=== PATIENT | male | born 1980 | race Caucasian/White ===

== ENCOUNTER 2017-06-29 15:21 | Emergency (ER) | payer OTHER ==
[2017-06-29] MEDS ORDERED: Zofran 4 MG/2 ML VIAL IV ONE (15:47)
[2017-06-29] MEDS ORDERED: Sodium Chloride 0.9% 1000 ML 1,000 ML IV STA (15:47)
[2017-06-29] MEDS ORDERED: PROTONIX 40 MG IV IV ONE ×2 (15:47→16:05)
[2017-06-29] MEDS ORDERED: GI COCKTAIL 45 ML (Maalox/Lidocaine) PO ONE (15:52)
--- NOTE | 2017-06-29 16:02 | ERPHSYRPT ---
- History of Present Illness Time Seen by Provider: 06/29/17 15:45 Historian: patient Exam Limitations: clinical condition Patient Subjective Stated Complaint: Pt states "two days ago I started to have stomach pain. It is a sharp pain that starts in my lower stomach and then comes up and out in my upper stomach." Triage Nursing Assessment: Pt alert and oriented X 3, skin pwd. Pt ambulates with an upright steady gait, able to speak in clear full sentences. appears in no respiratory distress, sitting calmly on the bed. Physician History: PATIENT COMPLAINS OF INTERMITTENT EPIGASTRIC AND PERIUMBILICAL PAINS FOR 2 DAYS , ASSOCIATED WITH NAUSEA. DENIES EMESIS, DIARRHEA OR FEVER. DENIES RADIATION OF PAIN TO BACK, URINARY SYMPTOMS. Timing/Duration: yesterday Activities at Onset: none Quality: throbbing Abdominal Pain Onset Location: epigastric, periumbilical Pain Radiation: no radiation Severity of Pain-Max: moderate Severity of Pain-Current: moderate Modifying Factors: Improves With: eating Associated Symptoms: nausea Previous symptoms: no prior history Allergies/Adverse Reactions: No Known Drug Allergies Allergy (Unverified 11/17/13 07:45) Hx Tetanus, Diphtheria Vaccination/Date Given: No Hx Influenza Vaccination/Date Given: No Hx Pneumococcal Vaccination/Date Given: No Immunizations Up to Date: Yes - Review of Systems Constitutional: No Fever, No Chills Eyes: No Symptoms Ears, Nose, & Throat: No Symptoms Respiratory: No Symptoms, No Cough, No Dyspnea Cardiac: No Symptoms, No Chest Pain, No Edema, No Syncope Abdominal/Gastrointestinal: Abdominal Pain, Nausea, No Vomiting, No Diarrhea Genitourinary Symptoms: No Symptoms, No Dysuria Musculoskeletal: No Symptoms, No Back Pain, No Neck Pain Skin: No Symptoms, No Rash Neurological: No Dizziness, No Focal Weakness, No Sensory Changes Psychological: No Symptoms Endocrine: No Symptoms All Other Systems: Reviewed and Negative - Past Medical History Pertinent Past Medical History: Yes Neurological History: No Pertinent History ENT History: No Pertinent History Cardiac History: No Pertinent History Respiratory History: No Pertinent History Endocrine Medical History: No Pertinent History Musculoskeletal History: No Pertinent History GI Medical History: Hernia History: No Pertinent History Psycho-Social History: No Pertinent History Male Reproductive Disorders: No Pertinent History - Past Surgical History Past Surgical History: Yes Neuro Surgical History: No Pertinent History Cardiac: No Pertinent History Respiratory: No Pertinent History Gastrointestinal: No Pertinent History Genitourinary: No Pertinent History Musculoskeletal: No Pertinent History Male Surgical History: No Pertinent History Other Surgical History: hernia - Social History Smoking Status: Current every day smoker How long have you smoked: years Exposure to second hand smoke: Yes Drug Use: none Patient Lives Alone: No - Nursing Vital Signs Nursing Vital Signs: Initial Vital Signs Temperature 98.3 F 06/29/17 15:26 Pulse Rate 72 06/29/17 15:26 Respiratory Rate 16 06/29/17 15:26 Blood Pressure 162/98 06/29/17 15:26 O2 Sat by Pulse Oximetry 99 06/29/17 15:26 Pain Scale Pain Intensity 4 - Physical Exam General Appearance: no apparent distress, alert Eye Exam: PERRL/EOMI, eyes nml inspection Ears, Nose, Throat Exam: normal ENT inspection, pharynx normal, moist mucous membranes Neck Exam: normal inspection, non-tender, supple, full range of motion Respiratory Exam: normal breath sounds, lungs clear, No respiratory distress Cardiovascular Exam: regular rate/rhythm, normal heart sounds Gastrointestinal/Abdomen Exam: soft, normal bowel sounds, tenderness ( PERIUMBILICAL. RLQ, LLQ TENDERNESS, NO GUARDING OR REBOUND TENDERNESS.), other (THERE IS NO GUARDING OR REBOUND TENDERNESS), No mass Back Exam: normal inspection, normal range of motion, No CVA tenderness, No vertebral tenderness Extremity Exam: normal inspection, normal range of motion, pelvis stable Neurologic Exam: alert, oriented x 3, cooperative, normal mood/affect, nml cerebellar function, sensation nml, No motor deficits Skin Exam: normal color, warm, dry SpO2 Interpretation: normal SpO2: 99 Oxygen Delivery: Room Air - CT Exams Abdomen/Pelvis CT Interpretation: Discussed w/radiologist (NEGATIVE ABDOMINAL PELVIC CT WITH CONTRAST) Ordered Tests: Active Orders 24 hr Category Date Time Status Clean Catch Urine Specimen STAT Care 06/29/17 15:47 Active IV Insertion STAT Care 06/29/17 15:47 Active ABDOMEN AND PELVIS W CONTRAST [CT] Stat Exams 06/29/17 15:48 Taken AMYLASE Stat Lab 06/29/17 16:00 Completed CBC W DIFF Stat Lab 06/29/17 16:00 Completed CMP Stat Lab 06/29/17 16:00 Completed LIPASE Stat Lab 06/29/17 16:00 Completed UA W/RFX UR CULTURE Stat Lab 06/29/17 16:45 Completed Medication Summary Discontinued Medications Generic Name Dose Route Start Last Admin Trade Name Aliyah PRN Reason Stop Dose Admin Al Hydrox/Mg Hydrox/Simethicone Confirm 06/29/17 16:05 Maalox Es 30 Ml Unit Dose Administered 06/29/17 16:06 Dose 30 ml .ROUTE .STK-MED ONE Hydromorphone HCl 1 mg 06/29/17 16:05 06/29/17 16:26 Hydromorphone 1 Mg/Ml Ampule IV 06/29/17 16:06 1 mg STAT ONE Administration Hydromorphone HCl Confirm 06/29/17 16:25 Hydromorphone 1 Mg/Ml Ampule Administered 06/29/17 16:26 Dose 1 mg .ROUTE .STK-MED ONE Sodium Chloride 1,000 mls @ 500 mls/hr 06/29/17 15:47 06/29/17 16:08 Sodium Chloride 0.9% 1000 Ml IV 06/29/17 17:46 500 mls/hr .Q2H STA Administration Sodium Chloride Confirm 06/29/17 16:05 Sodium Chloride 0.9% 1000 Ml Administered 06/29/17 16:06 Dose 1,000 mls @ ud .ROUTE .STK-MED ONE Lidocaine HCl Confirm 06/29/17 16:05 Xylocaine Hcl Viscous * Administered 06/29/17 16:06 Dose 1 ml .ROUTE .STK-MED ONE Magnesium Hydroxide 45 ml 06/29/17 15:52 06/29/17 16:08 Gi Cocktail 45 Ml (Maalox/Lidocaine) PO 06/29/17 15:53 45 ml STAT ONE Administration Ondansetron HCl 4 mg 06/29/17 15:47 06/29/17 16:08 Zofran 4 Mg/2 Ml Vial IV 06/29/17 15:48 4 mg STAT ONE Administration Ondansetron HCl Confirm 06/29/17 16:05 Zofran 4 Mg/2 Ml Vial Administered 06/29/17 16:06 Dose 4 mg .ROUTE .STK-MED ONE Pantoprazole Sodium 40 mg 06/29/17 15:47 06/29/17 16:08 Protonix 40 Mg Iv IV 06/29/17 15:48 40 mg STAT ONE Administration Pantoprazole Sodium Confirm 06/29/17 16:05 Protonix 40 Mg Iv Administered 06/29/17 16:06 Dose 40 mg IV .K-MED ONE Lab/Rad Data: Laboratory Result Diagrams 06/29/17 16:00 06/29/17 16:00 Laboratory Results 06/29/17 06/29/17 06/29/17 Range/Units 16:45 16:00 16:00 WBC 8.4 (4.0-10.5) K/mm3 RBC 5.06 (4.1-5.6) M/mm3 Hgb 16.6 (12.5-18.0) gm/dl Hct 49.6 (42-50) % MCV 98.0 (78-100) fl MCH 32.8 H (26-32) pg MCHC 33.5 (32-36) g/dl RDW 13.1 (11.5-14.0) % Plt Count 183 (150-450) K/mm3 MPV 12.0 H (6-9.5) fl Gran % 61.9 (36.0-66.0) % Lymphocytes % 28.9 (24.0-44.0) % Monocytes % 6.0 (0.0-12.0) % Eosinophils % 3.1 (0.00-5.0) % Basophils % 0.1 (0.0-0.4) % Basophils # 0.01 (0-0.4) Sodium 141 (136-145) mEq/L Potassium 3.7 (3.5-5.1) mEq/L Chloride 104 (98-107) mEq/L Carbon Dioxide 29.4 (21-32) mEq/L Anion Gap 10.9 (5-15) MEQ/L BUN 8 L (9-20) mg/dL Creatinine 1.00 (0.55-1.30) mg/dl Estimated GFR > 60 ML/MIN Glucose 94 (70-110) MG/DL Calcium 9.2 (8.5-10.1) mg/dL Total Bilirubin 0.50 (0.2-1.0) mg/dL AST 21 (15-37) U/L ALT 38 (12-78) U/L Alkaline Phosphatase 82 (46-116) U/L Serum Total Protein 7.6 (6.4-8.2) gm/dL Albumin 4.1 (3.4-5.0) g/dL Amylase 52 (25-115) U/L Lipase 116 (73-393) U/L Ur Collection Type CCMS Urine Color YELLOW (YELLOW) Urine Appearance CLEAR (CLEAR) Urine pH 7.0 (5-6) Ur Specific [place] 1.005 (1.005-1.025) Urine Protein NEGATIVE (Negative) Urine Ketones NEGATIVE (NEGATIVE) Urine Blood NEGATIVE (0-5) Elmo/ul Urine Nitrite NEGATIVE (NEGATIVE) Urine Bilirubin NEGATIVE (NEGATIVE) Urine Urobilinogen NORMAL (0-1) mg/dL Ur Leukocyte Esterase NEGATIVE (NEGATIVE) Urine Culture Reflexed NO (NO) Urine Glucose NEGATIVE (NEGATIVE) mg/dL Specimen Received 06-29-17 1655 - Progress Progress Note: 06/29/17 18:02 IV NORMAL SALINE 250ML/HR ZOFRAN 4MG, DILAUDID 1MG IV Counseled pt/family regarding: lab results, diagnosis, need for follow-up, rad results - Departure Time of Disposition: 18:10 Departure Disposition: Home Clinical Impression: ABDOMINAL PAIN Condition: Stable Critical Care Time: No Additional Instructions: FOLLOWUP WITH YOUR PRIMARY CARE PROVIDER FOR EVALUATION AND TREATMENT. ULTRAM 50MG EVERY 4 HOURS NEEDED FOR PAIN, AND ZOFRAN 4MG EVERY 4 HOURS FOR NAUSEA. RETURN TO EMERGENCY FOR INCREASING PAIN DISCOMFORT, ONSET OF VOMITING OR DIARRHEA. Prescriptions: Ondansetron [Zofran Odt] 4 mg PO Q4H PRN PRN #6 tab.rapdis PRN Reason: Nausea Tramadol HCl 50 mg [Ultram 50 mg] 50 mg PO Q4-6HPRN PRN #15 tablet PRN Reason: Pain
[2017-06-29] MEDS ORDERED: Zofran 4 MG/2 ML VIAL ONE (16:05)
[2017-06-29] MEDS ORDERED: Hydromorphone 1 mg/ml Ampule IV ONE (16:05)
[2017-06-29] MEDS ORDERED: XYLOCAINE HCl Viscous ONE (16:05)
[2017-06-29] MEDS ORDERED: Sodium Chloride 0.9% 1000 ML 1,000 ML ONE (16:05)
[2017-06-29] MEDS ORDERED: MAALOX ES 30 ML UNIT DOSE ONE (16:05)
[2017-06-29 16:14] LABS: BASOPHIL % 0.1 % (0.0-0.4); Eosinophil % 3.1 % (0.00-5.0); Granulocytes % 61.9 % (36.0-66.0); Lymphocytes % 28.9 % (24.0-44.0); Mean Corpuscular Hemoglobin 32.8 pg (26-32); Platelet Count 183 K/mm3 (150-450); Red Blood Count 5.06 M/mm3 (4.1-5.6); Red Cell Distribution Width 13.1 % (11.5-14.0); White Blood Count 8.4 K/mm3 (4.0-10.5)
[2017-06-29] MEDS ORDERED: Hydromorphone 1 mg/ml Ampule ONE (16:25)
[2017-06-29 16:31] VITALS: BP 153/93; PULSE 81
[2017-06-29 16:40] LABS: ALBUMIN 4.1 g/dL (3.4-5.0); ALKALINE PHOSPHATASE 82 U/L (46-116); ANION GAP 10.9 MEQ/L (5-15); BLOOD UREA NITROGEN 8 mg/dL (9-20); CHLORIDE 104 mEq/L (98-107); Carbon Dioxide 29.4 mEq/L (21-32); Glucose 94 MG/DL (70-110); LIPASE 116 U/L (73-393); Potassium 3.7 mEq/L (3.5-5.1); SGOT/AST 21 U/L (15-37); SGPT/ALT 38 U/L (12-78); SODIUM 141 mEq/L (136-145); Total Protein 7.6 gm/dL (6.4-8.2)
[2017-06-29 16:59] LABS: ADD URINE CULTURE? NO (NO); Bilirubin NEGATIVE (NEGATIVE); Blood NEGATIVE Ery/ul (0-5); COMPLETE URINE MICROSCOPIC? NO; Collection Type CCMS; Glucose NEGATIVE (NEGATIVE); Leukocyte Esterase NEGATIVE (NEGATIVE)
[2017-06-29 18:08] VITALS: O2SAT 99
--- NOTE | 2017-06-30 08:57 | XRAY ---
Indication: Left lower and right lower quadrant pain. Multiple contiguous axial images obtained through the abdomen and pelvis using 80 cc Isovue 370 contrast only. Comparison: None Lung bases demonstrate minimal bilateral dependent atelectasis. No infiltrate or effusion. Heart is not enlarged. Noncontrasted stomach and bowel loops appear nonobstructed. Normal appendix. No free fluid/air. Remaining liver, gallbladder, pancreas, spleen, adrenal glands, kidneys, ureters, and bladder appear unremarkable for noncontrast exam. Minimal aortoiliac calcifications. No AAA or pathologic retroperitoneal lymphadenopathy. Osseous structures intact. Impression: CT abdomen/pelvis with contrast exam is negative. CT DI 17.07
== END 2017-06-29 18:31 | disposition home or self-care (01) ==
LOC: ED 15:21
DX: R10.9 Unspecified abdominal pain (principal); R10.13 Epigastric pain; R11.0 Nausea
CPT/HCPCS: 36000; 36415; 74177; 80053; 81002; 82150; 83690; 85025; 96360; 96367; 96374; 99284; J1170; J2405; A9270-GY

== ENCOUNTER 2018-03-03 23:11 | Emergency (ER) | payer OTHER ==
[2018-03-03] MEDS ORDERED: Adacel Vial IM ONE ×2 (23:35→23:46)
[2018-03-03] MEDS ORDERED: BACIGUENT PACKET TP ONE (23:38)
[2018-03-03] MEDS ORDERED: BACIGUENT PACKET ONE (23:43)
--- NOTE | 2018-03-03 23:44 | ERPHSYRPT ---
- History of Present Illness Time Seen by Provider: 03/03/18 23:30 Source: patient Exam Limitations: no limitations Patient Subjective Stated Complaint: Was at work and got poked in his right hand , middle finger, denies any bleeding, finger is now red, swollen and hurting Triage Nursing Assessment: Pt was at work today and was scooping something with his hands and had gloves on, felt a burn/sting when the gloves got wet and his finger has continued to swell the rest of the day, now has pain in his right hand, Temp 99.2, BP 167/103, no difficulty breathing, pain 4/10 Physician History: This is a 37-year-old white male previously healthy arrives with complaint of pain and erythema to his right third finger symptoms since this morning. According to patient he was at work using gloves , apparently of using his hands to scoop something related to corn. He states he felt a stinging in his right hand third finger he felt this after his hand got wet. He states that he is having continued pain in his right hand third finger he feels like it is running up his hand. He is not sure if he got something into his right third finger. He has no fevers. Past medical history includes hernia. Past surgical history includes hernias. Patient is on amoxicillin for several days secondary to a sinus infection. Timing/Duration: today Severity: moderate Modifying Factors: Improves With: other (pain with movement right third finger, erythema right third finger) Associated Symptoms: other (pain and erythema right third finger), No nausea, No vomiting, No abdominal pain, No shortness of breath, No heartburn, No diaphoresis, No cough, No chills, No chest pain, No fever, No headaches, No loss of appetite, No malaise, No rash, No syncope, No seizure, No weakness Allergies/Adverse Reactions: No Known Drug Allergies Allergy (Verified 03/03/18 23:26) Home Medications: Amoxicillin 500 mg Cap [Amoxil 500 mg] 500 mg PO BID 03/03/18 [History] Hx Tetanus, Diphtheria Vaccination/Date Given: No Hx Influenza Vaccination/Date Given: No Hx Pneumococcal Vaccination/Date Given: No - Review of Systems Constitutional: No Fever, No Chills Eyes: No Symptoms Ears, Nose, & Throat: No Symptoms Respiratory: No Cough, No Dyspnea Cardiac: No Chest Pain, No Edema, No Syncope Abdominal/Gastrointestinal: No Abdominal Pain, No Nausea, No Vomiting, No Diarrhea Genitourinary Symptoms: No Dysuria Musculoskeletal: Other (Pain and erythema right third finger) Skin: Other (small laceration less than 1 mm volar surface right third finger, erythema right third finger) Neurological: No Dizziness, No Focal Weakness, No Sensory Changes Psychological: No Symptoms Endocrine: No Symptoms All Other Systems: Reviewed and Negative - Past Medical History Pertinent Past Medical History: Yes Neurological History: No Pertinent History ENT History: No Pertinent History Cardiac History: No Pertinent History Respiratory History: No Pertinent History Endocrine Medical History: No Pertinent History Musculoskeletal History: No Pertinent History GI Medical History: Hernia History: No Pertinent History Psycho-Social History: No Pertinent History Male Reproductive Disorders: No Pertinent History - Past Surgical History Past Surgical History: Yes Neuro Surgical History: No Pertinent History Cardiac: No Pertinent History Respiratory: No Pertinent History Gastrointestinal: No Pertinent History Genitourinary: No Pertinent History Musculoskeletal: No Pertinent History Male Surgical History: No Pertinent History Other Surgical History: hernia - Social History Smoking Status: Current every day smoker How long have you smoked: years Exposure to second hand smoke: Yes Drug Use: none Patient Lives Alone: No - Nursing Vital Signs Nursing Vital Signs: Initial Vital Signs Temperature 99.2 F 03/03/18 23:14 Pulse Rate 99 H 03/03/18 23:14 Blood Pressure 167/103 03/03/18 23:14 O2 Sat by Pulse Oximetry 100 03/03/18 23:14 Pain Scale Pain Intensity 4 - Physical Exam General Appearance: mild distress Eye Exam: PERRL/EOMI, eyes nml inspection Ears, Nose, Throat Exam: normal ENT inspection, TMs normal, pharynx normal, moist mucous membranes Neck Exam: normal inspection, non-tender, supple, full range of motion Respiratory Exam: normal breath sounds, lungs clear, No respiratory distress Cardiovascular Exam: regular rate/rhythm, normal heart sounds, normal peripheral pulses Gastrointestinal/Abdomen Exam: soft, normal bowel sounds, No tenderness, No mass Back Exam: normal inspection, normal range of motion, No CVA tenderness, No vertebral tenderness Extremity Exam: other (Right third finger with mild edema, small less than 1 mm laceration right third finger volar surface at IP joint full range of motion right hand and fingers, but pain with flexion right third finger good capillary refill all fingers, sensation intact to all fingers.) Neurologic Exam: alert, oriented x 3, cooperative, medication specialist II-XII nml as tested, normal mood/affect, nml cerebellar function, nml station & gait, sensation nml, No motor deficits Skin Exam: other (small less than 1 mm right third finger volar surface at IP joint small amount of purulent fluid expresses from this area. Right third finger tender with palpation) Lymphatic Exam: No adenopathy SpO2 Interpretation: normal (100%) SpO2: 100 Oxygen Delivery: Room Air - Course Nursing assessment & vital signs reviewed: Yes - Radiology Exams Right Hand X-ray Interpretation: Interpreted by me, Negative, No Fracture, No Subluxation Ordered Tests: Active Orders 24 hr Category Date Time Status Wound Care STAT Care 03/03/18 23:35 Active HAND (MINIMUM 3 VIEWS) Stat Exams 03/03/18 23:38 Taken CULTURE,WOUND Stat Lab 03/03/18 23:38 Received Medication Summary Generic Name Dose Route Start Last Admin Trade Name Freq PRN Reason Stop Dose Admin Hydrocodone Bitart/Acetaminophen 1 tab 03/04/18 00:12 [place] 5/325 Mg PO 03/04/18 00:13 SENT HOME W/ PATIENT ONE Ampicillin Sodium/Sulbactam Sodium 3 gm in 100 mls @ 200 mls/hr 03/03/18 23: 58 03/04/18 00:09 Unasyn 3gm / Nacl 100ml IV 03/04/18 00:27 200 mls/hr STAT STA 200 mls/hr Administration Discontinued Medications Generic Name Dose Route Start Last Admin Trade Name Freq PRN Reason Stop Dose Admin Bacitracin Zinc 0.9 gm 03/03/18 23:38 03/03/18 23:46 Baciguent Packet TP 03/03/18 23:39 0.9 gm STAT ONE Administration Bacitracin Zinc Confirm 03/03/18 23:43 Baciguent Packet Administered 03/03/18 23:44 Dose 1 gm .ROUTE .STK-MED ONE Diphtheria/Tetanus/Acell Pertussis 0.5 ml 03/03/18 23:35 03/03/18 23:46 Adacel Vial IM 03/03/18 23:36 0.5 ml .ONCE ONE Administration Diphtheria/Tetanus/Acell Pertussis Confirm 03/03/18 23:46 Adacel Vial Administered 03/03/18 23:47 Dose 0.5 ml IM .STK-MED ONE Ampicillin Sodium/Sulbactam Sodium Confirm 03/04/18 00:08 Unasyn 3gm / Nacl 100ml Administered 03/04/18 00:09 Dose 3 gm in 100 mls @ ud .ROUTE .STK-MED ONE - Progress Progress: improved Progress Note: 03/03/18 23:46 This is a 37-year-old white male previously healthy who has been on penicillin for sinus infection for the past couple of days. He states that this morning he was at work he was using a gloved hand to scoop up material related to corn. He states he is gloved got wet and he felt as sharp pain in his right third finger. Patient states that he thought he might have a foreign body but he did not see anything. He does have a small laceration to the right third finger volar surface which is less than 1 mm and is located at the DIP joint. He has erythema to his right third finger and he states he has pain which is radiating up his hand. On physical examination patient is noted to have purulent discharge from his laceration he has tenderness with palpation to his right third finger he has erythema to his right third finger. He has full range of motion to all fingers however he has pain with flexion of his right third finger. Wound culture has been obtained of the patient's right third finger Will obtain x-ray to rule out foreign body will have nurses clean the area apply bacitracin. Anticipate IM antibiotics, DTaP,. Will place patient on pain medication (most likely [place]) small amount. Patient is already on amoxicillin. Will give patient 3 g of Unasyn IV and switch patient to AUGMENTIN 875 MG ORALLY TWICE A DAY FOR 10 DAYS. 03/04/18 00:00 X-ray right hand, my read : No fractures no dislocation. Will treat patient for cellulitis right third finger, rule out flexor tenosynovitis. Patient will need recheck by his family doctor. 03/04/18 00:09 patient's tetanus was reevaluated. - Departure Time of Disposition: 00:07 Departure Disposition: Home Clinical Impression: cellulitis right third finger, Rule out flexor tenosynovitis Condition: Fair Critical Care Time: No Referrals: ALYSSA BOWEN [Primary Care Provider] - Additional Instructions: Return home. Stop amoxicillin begin Augmentin 875 mg twice a day for 10 days. [place] as prescribed. Clean area and apply bacitracin daily. Contact your family doctor tomorrow (Angelita Jain) and arrange follow-up appointment. You should have your finger reevaluated in 24-48 hours (sooner if worse) Return for acute distress or for severe symptoms. Prescriptions: Amox Tr/Potass Clav. 875 mg [Augmentin 875-125 Tablet] 875 mg PO BID #20 tablet Hydrocodone/Acetaminophen [[place] 5-325 Tablet] 1 tab PO Q4-6HPRN PRN #10 tablet MDD 6 tablets PRN Reason: Pain
[2018-03-03] MEDS ORDERED: Unasyn 3GM / NaCl 100ML 3 GM/100 ML IVPB IV STA (23:58)
[2018-03-04] MEDS ORDERED: Unasyn 3GM / NaCl 100ML 3 GM/100 ML IVPB ONE (00:08)
[2018-03-04] MEDS ORDERED: NORCO 5/325 MG PO ONE (00:12)
[2018-03-04 00:15] VITALS: BP 154/95; PULSE 87; O2SAT 99
[2018-03-04] MEDS ORDERED: NORCO 5/325 MG ONE (00:18)
--- NOTE | 2018-03-04 08:47 | XRAY ---
Indication: 3rd finger pain and erythema following puncture wound. Comparison: None 3 views of the right hand demonstrates mild 3rd finger soft tissue swelling. No other bony, articular, or soft tissue abnormalities.
== END 2018-03-04 00:45 | disposition home or self-care (01) ==
LOC: ED 23:11
DX: L03.011 Cellulitis of right finger (principal); S61.212A Laceration without foreign body of right middle finger without damage to nail, initial encounter; W22.8XXA Striking against or struck by other objects, initial encounter; Y93.89 Activity, other specified; Y92.89 Other specified places as the place of occurrence of the external cause; Y99.0 Civilian activity done for income or pay
CPT/HCPCS: 73130; 87070; 87077; 87186; 90471; 90715; 96372; 99284; J0295; A9270-GY

== ENCOUNTER 2018-03-05 22:58 | Emergency (ER) | payer OTHER ==
[2018-03-05 23:18] VITALS: O2SAT 99
[2018-03-05] MEDS ORDERED: Zofran 4 MG/2 ML VIAL IV ONE (23:41)
[2018-03-05] MEDS ORDERED: MORPHINE SULFATE 4 MG INJ IV ONE (23:41)
--- NOTE | 2018-03-05 23:41 | ERPHSYRPT ---
- History of Present Illness Time Seen by Provider: 03/05/18 23:29 Source: patient Exam Limitations: no limitations Patient Subjective Stated Complaint: pt was seen in er 03/03/18, and dx as cellulitis in right third finger; edema and pain now worse; wound is starting to drain this evening. Triage Nursing Assessment: pt a&o x3; skin p, w, & d; edema and redness noted to right third finger; pt ambulated to room per self; family at bedside. Physician History: The patient is a 37-year-old right-handed male with his complaining of a worsening condition to his right middle finger that began on Thursday morning. He works at a [employer] and was scooping corn with his bare hand when he felt like something stuck in in his right middle finger. By that evening it was painful, red, and swollen. He came to this ER on Thursday night because there was discharge from the wound. He was given Unasyn 3 g by IV. An x-ray was taken that was negative of his right finger. And he was placed on Augmentin. His finger has continued to become red, swollen, very tender, and is draining pus. It is hard for him to bend and straighten his finger because of the pain. He was also given a tetanus vaccination at the last ER visit. He tried to get into his primary care doctor after being seen in the ER on Thursday but [facility] said they could not see him until Thursday. Occurred: days ago (3) Method of Injury: other (injury at work) Quality: constant, sharpness, throbbing, tightness Severity of Pain-Max: severe Severity of Pain-Current: severe Extremities Pain Location: 3rd finger: right Modifying Factors: Improves With: pain medication (norco) Associated Symptoms: none Allergies/Adverse Reactions: codeine Allergy (Mild, Verified 03/05/18 23:18) Nausea and Vomiting Hx Tetanus, Diphtheria Vaccination/Date Given: Yes Hx Influenza Vaccination/Date Given: No Hx Pneumococcal Vaccination/Date Given: No Immunizations Up to Date: No - Review of Systems Constitutional: No Fever, No Chills Eyes: No Symptoms Ears, Nose, & Throat: No Symptoms Respiratory: No Cough, No Dyspnea Cardiac: No Chest Pain, No Edema, No Syncope Abdominal/Gastrointestinal: No Abdominal Pain, No Nausea, No Vomiting, No Diarrhea Genitourinary Symptoms: No Dysuria Musculoskeletal: No Back Pain, No Neck Pain Skin: Cellulitis Neurological: No Dizziness, No Focal Weakness, No Sensory Changes Psychological: No Symptoms Endocrine: No Symptoms Hematologic/Lymphatic: No Symptoms Immunological/Allergic: No Symptoms All Other Systems: Reviewed and Negative - Past Medical History Pertinent Past Medical History: Yes Neurological History: No Pertinent History ENT History: No Pertinent History Cardiac History: No Pertinent History Respiratory History: No Pertinent History Endocrine Medical History: No Pertinent History Musculoskeletal History: No Pertinent History GI Medical History: Hernia History: No Pertinent History Psycho-Social History: No Pertinent History Male Reproductive Disorders: No Pertinent History - Past Surgical History Past Surgical History: Yes Neuro Surgical History: No Pertinent History Cardiac: No Pertinent History Respiratory: No Pertinent History Gastrointestinal: No Pertinent History Genitourinary: No Pertinent History Musculoskeletal: No Pertinent History Male Surgical History: No Pertinent History Other Surgical History: hernia - Social History Smoking Status: Current every day smoker How long have you smoked: 20 years Exposure to second hand smoke: No Drug Use: none Patient Lives Alone: No - Nursing Vital Signs Nursing Vital Signs: Initial Vital Signs Temperature 99.5 F 03/05/18 23:06 Pulse Rate 90 03/05/18 23:06 Respiratory Rate 18 03/05/18 23:06 Blood Pressure 137/90 03/05/18 23:06 O2 Sat by Pulse Oximetry 99 03/05/18 23:06 Pain Scale Pain Intensity 8 - Physical Exam General Appearance: alert Eyes, Ears, Nose, Throat Exam: moist mucous membranes Neck Exam: non-tender, supple Cardiovascular/Respiratory Exam: chest non-tender, normal breath sounds, regular rate/rhythm, no respiratory distress Abdominal Exam: non-tender, No guarding Back Exam: normal inspection, No vertebral tenderness Shoulder Exam: normal inspection Elbow/Forearm Exam: normal inspection Wrist Exam: normal inspection Hand Exam: swelling (Examination of the right middle finger: There is a small wound at the volar surface of the DIP joint with purulent discharge. The entire finger is red, swollen, and very tender to mild palpation. The fingers also warm. The hand is normal in appearance except for the middle finger.) Neuro/Tendon Exam: normal sensation, normal motor functions Mental Status Exam: alert, oriented x 3, cooperative SpO2 Interpretation: normal SpO2: 99 Oxygen Delivery: Room Air Ordered Tests: Active Orders 24 hr Category Date Time Status IV Insertion STAT Care 03/05/18 23:41 Active BMP Stat Lab 03/05/18 23:53 Completed CBC W DIFF Stat Lab 03/05/18 23:53 Completed CULTURE,WOUND Stat Lab 03/05/18 00:23 Received Lactic Acid Stat Lab 03/05/18 23:41 Completed Medication Summary Generic Name Dose Route Start Last Admin Trade Name Fregopal PRN Reason Stop Dose Admin Vancomycin HCl 1 gm in 250 mls @ 167 mls/hr 03/05/18 23:42 03/05/18 23:59 Vancomycin 1gm/ Ns 250ml IV 03/06/18 01:11 167 mls/hr STAT ONE Administration Discontinued Medications Generic Name Dose Route Start Last Admin Trade Name Freq PRN Reason Stop Dose Admin Vancomycin HCl Confirm 03/05/18 23:55 Vancomycin 1gm/ Ns 250ml Administered 03/05/18 23:56 Dose 250 mls @ ud IV .STK-MED ONE Morphine Sulfate 4 mg 03/05/18 23:41 03/06/18 00:00 Morphine Sulfate 4 Mg Inj IV 03/05/18 23:42 4 mg STAT ONE Administration Morphine Sulfate Confirm 03/05/18 23:55 Morphine Sulfate 4 Mg Inj Administered 03/05/18 23:56 Dose 4 mg .ROUTE .STK-MED ONE Ondansetron HCl 4 mg 03/05/18 23:41 03/06/18 00:00 Zofran 4 Mg/2 Ml Vial IV 03/05/18 23:42 4 mg STAT ONE Administration Ondansetron HCl Confirm 03/05/18 23:54 Zofran 4 Mg/2 Ml Vial Administered 03/05/18 23:55 Dose 4 mg .ROUTE .STK-MED ONE Lab/Rad Data: Laboratory Result Diagrams 03/05/18 23:53 03/05/18 23:53 Laboratory Results 03/05/18 03/05/18 03/05/18 Range/Units 23:53 23:53 23:41 WBC 11.3 H (4.0-10.5) K/mm3 RBC 5.01 (4.1-5.6) M/mm3 Hgb 17.1 (12.5-18.0) gm/dl Hct 49.3 (42-50) % MCV 98.4 (78-100) fl MCH 34.1 H (26-32) pg MCHC 34.7 (32-36) g/dl RDW 13.3 (11.5-14.0) % Plt Count 171 (150-450) K/mm3 MPV 11.9 H (6-9.5) fl Gran % 71.3 H (36.0-66.0) % Eos # (Auto) 0.21 (0-0.5) Absolute Lymphs (auto) 2.42 (1.0-4.6) Absolute Monos (auto) 0.58 (0.0-1.3) Lymphocytes % 21.5 L (24.0-44.0) % Monocytes % 5.1 (0.0-12.0) % Eosinophils % 1.9 (0.00-5.0) % Basophils % 0.2 (0.0-0.4) % Absolute Granulocytes 8.05 H (1.4-6.9) Basophils # 0.02 (0-0.4) Sodium 139 (137-145) mmol/L Potassium 4.2 (3.5-5.1) mmol/L Chloride 102 (98-107) mmol/L Carbon Dioxide 27 (22-30) mmol/L Anion Gap 14.6 (5-15) MEQ/L BUN 12 (9-20) mg/dL Creatinine 0.94 (0.66-1.25) mg/dL Estimated GFR > 60.0 ML/MIN Glucose 102 (74-106) mg/dL Lactic Acid 1.0 (0.4-2.0) Calcium 9.6 (8.4-10.2) mg/dL - Departure Time of Disposition: 00:52 Departure Disposition: Home Clinical Impression: Cellulitis Condition: Stable Critical Care Time: No Referrals: CHANTELL ARORA [facility] ASSIST[facility] [Primary Care Provider] - Additional Instructions: You have worsening cellulitis of your right middle finger with purulent drainage. You were given vancomycin 1 g IV in the ER. Discontinue the Augmentin that you are currently taking. Follow-up in the [facility] infusion center for vancomycin IV 2 times a day for 7 days. Follow-up with your primary medical doctor on Thursday.
[2018-03-05] MEDS ORDERED: Vancomycin 1GM/ Ns 250ML*** 1 GM/250 ML IVPB IV ONE (23:42)
[2018-03-05] MEDS ORDERED: Zofran 4 MG/2 ML VIAL ONE (23:54)
[2018-03-05] MEDS ORDERED: Vancomycin 1GM/ Ns 250ML*** 250 ML IV ONE (23:55)
[2018-03-05] MEDS ORDERED: MORPHINE SULFATE 4 MG INJ ONE (23:55)
[2018-03-05 23:56] LABS: BASOPHIL % 0.2 % (0.0-0.4); Basophil (Absolute #) 0.02 (0-0.4); Eosinophil % 1.9 % (0.00-5.0); Eosinophil (Absolute #) 0.21 (0-0.5); Granulocyte Absolute (ANC) 8.05 (1.4-6.9); Granulocytes % 71.3 % (36.0-66.0); Hematocrit 49.3 % (42-50); Hemoglobin 17.1 gm/dl (12.5-18.0); Lymphocyte (Absolute #) 2.42 (1.0-4.6); Lymphocytes % 21.5 % (24.0-44.0); Mean Cell Volume 98.4 fl (78-100); Mean Corpuscular Hemoglobin 34.1 pg (26-32); Mean Corpuscular Hgb Concent. 34.7 g/dl (32-36); Mean Platelet Volume 11.9 fl (6-9.5); Monocyte (Absolute #) 0.58 (0.0-1.3); Monocytes % 5.1 % (0.0-12.0); Platelet Count 171 K/mm3 (150-450); Red Blood Count 5.01 M/mm3 (4.1-5.6); Red Cell Distribution Width 13.3 % (11.5-14.0); White Blood Count 11.3 K/mm3 (4.0-10.5)
[2018-03-06 00:21] LABS: ANION GAP 14.6 MEQ/L (5-15); BLOOD UREA NITROGEN 12 mg/dL (9-20); CHLORIDE 102 mmol/L (98-107); Calcium 9.6 mg/dL (8.4-10.2); Carbon Dioxide 27 mmol/L (22-30); Creatinine 1 0.94 mg/dL (0.66-1.25); Glucose 102 mg/dL (74-106); Potassium 4.2 mmol/L (3.5-5.1); SODIUM 139 mmol/L (137-145)
[2018-03-06] MEDS ORDERED: NORCO 5/325 MG PO ONE (00:55)
[2018-03-06] MEDS ORDERED: NORCO 5/325 MG ONE (02:07)
[2018-03-06 02:28] VITALS: BP 124/66; PULSE 82
== END 2018-03-06 02:19 | disposition home or self-care (01) ==
LOC: ED 22:58
DX: L03.011 Cellulitis of right finger (principal)
CPT/HCPCS: 36000; 36415; 80048; 83605; 85025; 87070; 87077; 87186; 96374; 96375; 99284; J2270; J2405; J3370; A9270-GY